=== PATIENT | female | born 1975 | race Caucasian/White ===

== ENCOUNTER 2022-10-28 11:18 | Emergency (ER) | payer SELFPAY ==
[2022-10-28 13:53] VITALS: BP 118/90
[2022-10-28] MEDS ORDERED: Levofloxacin 750 MG Tab PO STA (14:06)
[2022-10-28] MEDS ORDERED: Albuterol 8 GM Inhaler INH STA (14:07)
[2022-10-28] MEDS ORDERED: predniSONE 20 MG Tab PO STA (14:07)
[2022-10-28 14:38] VITALS: PULSE 85
== END 2022-10-28 14:30 | disposition home or self-care (01) ==
LOC: MW.ED 11:18
DX: J32.9 Chronic sinusitis, unspecified (principal); B96.89 Other specified bacterial agents as the cause of diseases classified elsewhere
CPT/HCPCS: 71046; 71046-26; 99283; A9270-GY